=== PATIENT | male | born 1960 | race Caucasian/White ===

== ENCOUNTER 2016-10-11 22:58 | Observation (INO) | payer MEDICARE, MEDICAID ==
[~2016-10-11] VITALS: Ht 185.4 cm; Wt 123.4 kg
[~2016-10-11 22:58] MED LIST: ACTOS30 MG PO; ASPIRIN EC81 MG PO; CARDIZEM60 MG PO; FLEXERIL 10 MG10 MG PO; GLUCOVANCE 2.51 EACH PO; GLYBURID-METFO1 EACH PO; GLYBURIDE-METF1 EACH PO; HYDROCODON-ACE1 EAC2 PO; IMDUR ER TAB 3030 MG PO; LISINOPRIL40 MG PO; LOPRESSOR 25 MG25 MG PO; NASONEX17 GM; NEURONTIN 300300 MG PO; NITROSTAT 0.40.4 MG SL; SYNTHROID 100100 MCG PO; SYNTHROID100 MCG PO; SYNTHROID300 MCG PO; TOPROL XL 50 MG50 MG PO; TRAMADOL HCL50 MG PO; ULTRAM50 MG PO
[2016-10-12 00:50] LABS: HEMOGLOBIN 11.9 gm/dl (14.0-17.5); RED BLOOD COUNT 5.73 M/UL (4.20-5.50); WHITE BLOOD COUNT 6.3 K/UL (4.5-11.0)
[2016-10-12 01:02] LABS: BUN/CREATININE RATIO 18 (0-10)
[2016-10-12] MEDS ORDERED: ISOSORBIDE MONO30 MG PO (04:07)
[2016-10-12] MEDS ORDERED: METOPROLOL TART25 MG PO (04:09)
[2016-10-12 06:15] LABS: BUN/CREATININE RATIO 15 (0-10)
[2016-10-13 03:50] LABS: RED BLOOD COUNT 5.85 M/UL (4.20-5.50); WHITE BLOOD COUNT 8.3 K/UL (4.5-11.0)
[2016-10-13 03:58] LABS: BUN/CREATININE RATIO 15 (0-10)
[2016-10-13] MEDS ORDERED: CRESTOR20 MG PO (10:44)
[2016-10-13] MEDS ORDERED: BRILINTA90 MG PO (10:45)
[2016-10-13] MEDS ORDERED: BASAGLAR SQ (10:47)
== END 2016-10-13 09:30 | disposition home or self-care (01) ==
LOC: ER1 22:58 → ZEROF 10-12 01:36 → M/S 10-12 03:58 → PROG CARE 10-12 15:10
PROVIDERS: Internal Medicine; Physician Assistant; ADMIT Family Medicine
DX: I25.110 Atherosclerotic heart disease of native coronary artery with unstable angina pectoris (principal); E78.5 Hyperlipidemia, unspecified; I10 Essential (primary) hypertension; E11.65 Type 2 diabetes mellitus with hyperglycemia; M19.90 Unspecified osteoarthritis, unspecified site; E89.0 Postprocedural hypothyroidism; Z98.61 Coronary angioplasty status; Z79.82 Long term (current) use of aspirin; Z79.899 Other long term (current) drug therapy; Z85.850 Personal history of malignant neoplasm of thyroid; Z98.1 Arthrodesis status
CPT/HCPCS: 36415; 71010; 80048; 80053; 80061; 82550; 82553; 82962; 83036; 83874; 83880; 84484; 85025; 85027; 85347; 93005; 96372; 99285; C1725; C1769; C1874; C1887; C9600; G0378; J0461; J0583; J1644; J1815; J2250; J3010; J7030; Q0163; Q9963

== ENCOUNTER → 2020-05-27 | Outpatient (CLI) | payer MEDICARE ==
[~2020-05-27] MED LIST changes: +BACTROBAN OINT22 GM EXT; +BASAGLAR SQ; +BRILINTA90 MG PO; +CRESTOR20 MG PO; +DECADRON6 MG PO; +ISOSORBIDE MONO30 MG PO; +JARDIANCE10 MG PO; +KEFLEX CAP 500500 MG PO; +LEVOTHYROXINE150 MCG PO; +METFORMIN HCL1000 MG PO; +METOPROLOL TART25 MG PO; -NEURONTIN 300300 MG PO; +NEURONTIN300 MG PO; +NORCO 5-325 TA1 EACH PO; +NOVOLIN N100 UNIT/2 SQ; +TORADOL 10 MG T10 MG PO; +VIBRAMYCIN100 MG PO; +ZOFRAN ODT4 MG PO
== END ==
LOC: RT 14:36
DX: R00.8 Other abnormalities of heart beat (principal); R94.31 Abnormal electrocardiogram [ECG] [EKG]
CPT/HCPCS: 93005

== ENCOUNTER 2020-09-07 18:58 | Emergency (ER) | payer MEDICARE ==
[~2020-09-07 18:58] MED LIST changes: -DECADRON6 MG PO; -JARDIANCE10 MG PO; -LEVOTHYROXINE150 MCG PO; -METFORMIN HCL1000 MG PO; -NOVOLIN N100 UNIT/2 SQ
[2020-09-08 02:17] LABS: HEMOGLOBIN 13.5 gm/dl (14.0-17.5); RED BLOOD COUNT 6.24 M/UL (4.20-5.50); WHITE BLOOD COUNT 9.3 K/UL (4.5-11.0)
[2020-09-08 02:32] LABS: BUN/CREATININE RATIO 16 (0-10)
== END 2020-09-08 04:24 | disposition home or self-care (01) ==
LOC: ER1 18:58
PROVIDERS: Family Medicine
DX: E11.65 Type 2 diabetes mellitus with hyperglycemia (principal); R07.89 Other chest pain; E78.5 Hyperlipidemia, unspecified; I11.9 Hypertensive heart disease without heart failure; I51.9 Heart disease, unspecified; Z79.82 Long term (current) use of aspirin; Z79.899 Other long term (current) drug therapy; I25.10 Atherosclerotic heart disease of native coronary artery without angina pectoris; R53.1 Weakness
CPT/HCPCS: 71045; 80053; 82550; 82553; 83874; 83880; 84484; 85025; 93005; 99285; J2185

== ENCOUNTER 2020-09-26 15:48 | Observation (INO) | payer MEDICARE ==
[~2020-09-26] VITALS: Ht 185.4 cm; Wt 120.2 kg
[2020-09-26 17:17] LABS: HEMOGLOBIN 12.8 gm/dl (14.0-17.5); RED BLOOD COUNT 6.01 M/UL (4.20-5.50); WHITE BLOOD COUNT 6.8 K/UL (4.5-11.0)
[2020-09-26 17:37] LABS: BUN/CREATININE RATIO 14 (0-10)
[2020-09-27] MEDS ORDERED: NOVOLIN N100 UNIT/2 SQ (14:11)
[2020-09-27] MEDS ORDERED: LEVOTHYROXINE150 MCG PO (14:11)
[2020-09-27] MEDS ORDERED: METFORMIN HCL1000 MG PO (14:11)
[2020-09-27] MEDS ORDERED: JARDIANCE10 MG PO (14:11)
== END 2020-09-27 20:01 | disposition home or self-care (01) ==
LOC: ER1 15:48 → CDU 20:31 → M/S 20:31
PROVIDERS: Physician Assistant Medical; ADMIT Internal Medicine
DX: H49.21 Sixth [abducent] nerve palsy, right eye (principal); E11.65 Type 2 diabetes mellitus with hyperglycemia; E89.0 Postprocedural hypothyroidism; I25.10 Atherosclerotic heart disease of native coronary artery without angina pectoris; I10 Essential (primary) hypertension; E78.5 Hyperlipidemia, unspecified; M51.36 Other intervertebral disc degeneration, lumbar region; Z95.5 Presence of coronary angioplasty implant and graft; Z98.1 Arthrodesis status; Z79.891 Long term (current) use of opiate analgesic; Z79.84 Long term (current) use of oral hypoglycemic drugs; Z79.82 Long term (current) use of aspirin; Z79.899 Other long term (current) drug therapy; Z20.822 Contact with and (suspected) exposure to COVID-19
CPT/HCPCS: 70450; 70496; 70498; 70551; 71046; 80053; 81001; 82009; 82550; 82553; 82962; 83735; 83874; 84439; 84443; 84484; 85025; 85610; 85730; 93005; 99284; G0378; Q9967; U0002

== ENCOUNTER → 2020-10-01 | Outpatient (CLI) | payer MEDICARE ==
[~2020-10-01] MED LIST changes: +DECADRON6 MG PO; +JARDIANCE10 MG PO; +LEVOTHYROXINE150 MCG PO; +METFORMIN HCL1000 MG PO; +NOVOLIN N100 UNIT/2 SQ
== END ==
LOC: RAD 12:27
DX: M51.36 Other intervertebral disc degeneration, lumbar region (principal); M47.816 Spondylosis without myelopathy or radiculopathy, lumbar region
CPT/HCPCS: 72100

== ENCOUNTER 2020-10-17 19:16 | Emergency (ER) | payer MEDICARE ==
[~2020-10-17 19:16] MED LIST changes: -DECADRON6 MG PO
[2020-10-17 20:46] LABS: HEMOGLOBIN 13.1 gm/dl (14.0-17.5); RED BLOOD COUNT 6.1 M/UL (4.20-5.50); WHITE BLOOD COUNT 7.1 K/UL (4.5-11.0)
[2020-10-17 21:10] LABS: BUN/CREATININE RATIO 15 (0-10)
[2020-10-18] MEDS ORDERED: DECADRON6 MG PO (00:56)
== END 2020-10-18 01:21 | disposition home or self-care (01) ==
LOC: ER1 19:16
PROVIDERS: Physician Assistant
DX: T78.40XA Allergy, unspecified, initial encounter (principal); R06.02 Shortness of breath; E78.5 Hyperlipidemia, unspecified; I10 Essential (primary) hypertension; I25.2 Old myocardial infarction; I25.10 Atherosclerotic heart disease of native coronary artery without angina pectoris; X58.XXXA Exposure to other specified factors, initial encounter
CPT/HCPCS: 71045; 80053; 82550; 82553; 83874; 83880; 84484; 85025; 85610; 85730; 93005; 99285

== ENCOUNTER → 2020-11-12 | Outpatient (CLI) | payer MEDICARE ==
[~2020-11-12] MED LIST changes: +DECADRON6 MG PO
== END ==
LOC: KOH-I 10:02
DX: H53.2 Diplopia (principal)
CPT/HCPCS: 70480

== ENCOUNTER → 2021-11-08 | Outpatient (CLI) | payer MEDICARE ==
[2021-11-10 10:14] LABS: CREATININE, URINE 69.3 mg/dL (Not Estab.)
[2021-11-11 00:09] LABS: THYROGLOBULIN ANTIBODY <1.0 IU/mL (0.0-0.9); THYROGLOBULIN BY IMA <0.1 ng/mL (1.4-29.2)
== END ==
LOC: LAB 15:18
PROVIDERS: Internal Medicine
DX: C73 Malignant neoplasm of thyroid gland (principal); E11.9 Type 2 diabetes mellitus without complications
CPT/HCPCS: 36415; 82043; 82570; 84443; 86800